=== PATIENT | female | born 1950 | race Caucasian/White ===

== ENCOUNTER 2016-11-09 03:11 | Emergency (ER) | payer OTHER ==
[2016-11-09] MEDS ORDERED: ONDANSETRON 4 MG/2 ML VIAL IVP ONE (04:23)
[2016-11-09] MEDS ORDERED: NS 1,000 ML IV ONE (04:23)
[2016-11-09] MEDS ORDERED: DIAZEPAM 10 MG/2 ML SYR IVP ONE (04:23)
[2016-11-09 04:47] LABS: % IMMATURE GRANULYOCYTES 0.3 % (0.0-1.1); ABSOLUTE IMMATURE GRANULOCYTES 0.03 10^3/uL (0.00-0.10); ADD DIFF? NO; ADD MORPH? NO; ADD SCAN? NO; ATYPICAL LYMPHOCYTE FLAG 0 (0-99); FRAGMENT RBC FLAG 0 (0-99); HEMOGLOBIN 13.9 g/dL (12.6-16.3); LEFT SHIFT FLG 0 (0-99); LIPEMIA HEMOLYSIS FLAG 90 (0-99); MEAN CELL HEMOGLOBIN 31.9 pg (27.9-34.1); MEAN CELL HEMOGLOBIN CONCENTR. 34.8 g/dL (32.4-36.7); MEAN CELL VOLUME 91.7 fL (81.5-99.8); MEAN PLATELET VOLUME 9.3 fL (8.7-11.7); PLATELET CLUMPS FLAG 0 (0-99); PLATELET COUNT 218 10^3/uL (150-400); RED BLOOD CELL COUNT 4.36 10^6/uL (4.18-5.33); RED CELL DISTRIBUTION WIDTH 12.7 % (11.5-15.2)
[2016-11-09 04:58] LABS: ANION GAP 8 mEq/L (8-16); CALCIUM 8.9 mg/dL (8.5-10.4); CARBON DIOXIDE 23 mEq/l (22-31); CHLORIDE 111 mEq/L (97-110); CREATININE 0.7 mg/dL (0.6-1.0); GLOMERULAR FILTRATION RATE > 60; GLUCOSE 101 mg/dL (70-100); POTASSIUM 4.1 mEq/L (3.5-5.2); SODIUM 142 mEq/L (134-144)
--- NOTE | 2016-11-09 05:19 | EDPHY ---
HPI/HX/ROS/PE/MDM Narrative: Chief complaint: Dizziness, sweating, nausea and vomiting HPI: 65-year-old female woke this morning feeling lightheaded. She sat up in bed and had an episode of the sensation that the room was moving and spinning. This lasted for a couple of minutes. She had some nausea and did have an emesis. She states that that sensation has gone away but she now feels general fatigue. Does not have a history of similar before. No recent illness. No fevers or chills. No chest pain. No shortness of breath. No abdominal pain. She has not have a headache. ROS: 10 point Review of Systems is negative except as noted in the HPI. Physical exam: Gen: Awake, Alert, No Distress HEENT: Nose: no rhinorrhea Eyes: PERRLA, EOMI, no nystagmus Mouth: Moist mucosa Neck: Supple, no JVD Chest: nontender, lungs clear to auscultation Heart: S1, S2 normal, no murmur Abd: Soft, non-tender, no guarding Back: no CVA tenderness, no midline tenderness Ext: no edema, non-tender Skin: no rash Neuro: CN II-XII intact, normal finger-nose, normal heel-caldera, negative Romberg , Sensation grossly intact, Strength 5/5 in bilateral upper and lower extremities ED Course: 65-year-old presenting with vertiginous symptoms this morning. She is negative bloods and negative urine. Symptoms are improved with small dose of diazepam and IV fluids. She has a nonfocal neurologic exam. Symptoms are positional and consistent with a peripheral vertigo. Will discharge her with prescription for some meclizine. Differential includes benign positional vertigo, labyrinthitis. I have also considered Meniere's disease, brainstem TIA or brainstem stroke, vertebral artery dissection. - Data Points Laboratory Results: Laboratory Results 11/09/16 04:35 11/09/16 04:35 11/09/16 11/09/16 05:30 04:35 WBC 9.82 H 10^3/uL (3.80-9.50) RBC 4.36 10^6/uL (4.18-5.33) Hgb 13.9 g/dL (12.6-16.3) Hct 40.0 % (38.0-47.0) MCV 91.7 fL (81.5-99.8) MCH 31.9 pg (27.9-34.1) MCHC 34.8 g/dL (32.4-36.7) RDW 12.7 % (11.5-15.2) Plt Count 218 10^3/uL (150-400) MPV 9.3 fL (8.7-11.7) Neut % (Auto) 80.1 H % (39.3-74.2) Lymph % (Auto) 15.2 % (15.0-45.0) Fergus % (Auto) 3.7 L % (4.5-13.0) Eos % (Auto) 0.4 L % (0.6-7.6) Baso % (Auto) 0.3 % (0.3-1.7) Nucleat RBC Rel Count 0.0 % (0.0-0.2) Absolute Neuts (auto) 7.87 H 10^3/uL (1.70-6.50) Absolute Lymphs (auto) 1.49 10^3/uL (1.00-3.00) Absolute Monos (auto) 0.36 10^3/uL (0.30-0.80) Absolute Eos (auto) 0.04 10^3/uL (0.03-0.40) Absolute Basos (auto) 0.03 10^3/uL (0.02-0.10) Absolute Nucleated RBC 0.00 10^3/uL (0-0.01) Immature Gran % 0.3 % (0.0-1.1) Immature Gran # 0.03 10^3/uL (0.00-0.10) Sodium 142 mEq/L (134-144) Potassium 4.1 mEq/L (3.5-5.2) Chloride 111 H mEq/L (97-110) Carbon Dioxide 23 mEq/l (22-31) Anion Gap 8 mEq/L (8-16) BUN 20 mg/dL (7-23) Creatinine 0.7 mg/dL (0.6-1.0) Estimated GFR > 60 Glucose 101 H mg/dL (70-100) Calcium 8.9 mg/dL (8.5-10.4) Urine Color PALE YELLOW Urine Appearance CLEAR Urine pH 6.0 (5.0-7.5) Ur Specific Upson 1.009 (1.002-1.030) Urine Protein NEGATIVE (NEGATIVE) Urine Ketones NEGATIVE (NEGATIVE) Urine Blood 1+ H (NEGATIVE) Urine Nitrate NEGATIVE (NEGATIVE) Urine Bilirubin NEGATIVE (NEGATIVE) Urine Urobilinogen NEGATIVE EU (0.2-1.0) Ur Leukocyte Esterase NEGATIVE (NEGATIVE) Urine RBC 3-5 H /hpf (0-3) Urine WBC 1-3 /hpf (0-3) Ur Epithelial Cells Not Reported Urine Mucus TRACE /lpf (NONE-1+) Urine Glucose NEGATIVE (NEGATIVE) Medications Given: Discontinued Medications Diazepam (Valium Injection) 2.5 mg IVP EDNOW ONE Stop: 11/09/16 04:24 Last Admin: 11/09/16 04:37 Dose: 2.5 mg Sodium Chloride (Ns) 1,000 mls @ 0 mls/hr IV ONCE ONE PRN Reason: Wide Open Stop: 11/09/16 04:24 Last Admin: 11/09/16 04:30 Dose: 1,000 mls Ondansetron HCl (Zofran) 4 mg IVP EDNOW ONE Stop: 11/09/16 04:24 Last Admin: 11/09/16 04:35 Dose: 4 mg General Time Seen by Provider: 11/09/16 04:13 Initial Vital Signs: Initial Vital Signs Temperature (C) 36.3 C 11/09/16 03:14 Heart Rate 69 11/09/16 03:14 Respiratory Rate 22 H 11/09/16 03:14 Blood Pressure 146/86 H 11/09/16 03:14 O2 Sat (%) 97 11/09/16 03:14 O2 Delivery Mode Room Air Allergies/Adverse Reactions: No Known Allergies Allergy (Unverified 11/09/16 03:13) Home Medications: Medication Instructions Recorded CALCIUM 11/09/16 Lipitor 20 mg (*) 11/09/16 Meclizine HCl 25 mg PO Q8 PRN #10 tablet 11/09/16 Multivitamin 11/09/16 Departure - Departure Disposition: Home, Routine, Self-Care Clinical Impression: Vertigo Condition: Good Instructions: Vertigo (ED) Additional Instructions: You may take meclizine as needed for dizziness. Return to the emergency department for increasing dizziness, nausea, vomiting, worsening headache, fevers, chills, or any other concerns. Follow up with primary care doctor in 2-3 days for re-evaluation. Referrals: Ishan Martines MD [Primary Care Provider] - As per Instructions Prescriptions: Meclizine HCl 25 mg PO Q8 PRN #10 tablet PRN Reason: Dizziness
[2016-11-09 05:34] VITALS: RESP 16
[2016-11-09 05:46] LABS: COLOR PALE YELLOW; LEUKOCYTE ESTERASE,URINE NEGATIVE (NEGATIVE); NITRITE,URINE NEGATIVE (NEGATIVE)
[2016-11-09 06:19] LABS: MUCUS TRACE /lpf (NONE-1+)
[2016-11-09 06:57] VITALS: BP 118/64; PULSE 75; TEMP 98.1; O2SAT 97
== END 2016-11-09 06:58 | disposition home or self-care (01) ==
DX: R42 Dizziness and giddiness (principal)
CPT/HCPCS: 96374; J2405

== ENCOUNTER → 2017-07-06 | Outpatient (CLI) | payer OTHER | LOC: FIMAGING 12:28 | PROVIDERS: ATTEND Obstetrics & Gynecology | DX: Z12.31 Encounter for screening mammogram for malignant neoplasm of breast (principal) | CPT/HCPCS: G0202 ==

== ENCOUNTER → 2018-03-19 | Outpatient (CLI) | payer OTHER | LOC: FIMAGING 13:00 | PROVIDERS: ATTEND Obstetrics & Gynecology | DX: Z12.31 Encounter for screening mammogram for malignant neoplasm of breast (principal) ==

== ENCOUNTER → 2018-03-25 | Outpatient (CLI) | payer OTHER | LOC: BMCIMAGING 13:30 | PROVIDERS: ATTEND Obstetrics & Gynecology | DX: Z13.820 Encounter for screening for osteoporosis (principal); M81.0 Age-related osteoporosis without current pathological fracture; M85.89 Other specified disorders of bone density and structure, multiple sites; Z78.0 Asymptomatic menopausal state ==

== ENCOUNTER → 2019-03-20 | Outpatient (CLI) | payer OTHER | LOC: FIMAGING 13:06 ==